=== PATIENT | male | born 1995 ===

== ENCOUNTER 2016-09-14 17:26 | Emergency (ER) | payer MEDICAID, OTHER ==
[2016-09-14 17:26] VITALS: BMI 20.3
[2016-09-14 17:38] VITALS: BP 136/75; RESP 16; O2SAT 100
--- NOTE | 2016-09-14 18:25 | ED PDOC ---
HPI: General Adult Time Seen by Provider: 09/14/16 17:40 Chief Complaint (Nursing): Flu-like Symptoms Chief Complaint (Provider): Congestion and body aches History Per: Patient History/Exam Limitations: no limitations Onset/Duration Of Symptoms: Hrs (since this morning) Have you had recent travel within the past 21 days to any of the following countries: [place], [place], [place] or [place]?: No Current Symptoms Are (Timing): Still Present Severity: Moderate Additional Complaint(s): Malinda Maier is a 21 year old male, with no pertinent past medical history, who presents to the ED on 09/14/16 for the evaluation of moderate nasal congestion and body aches that he has experienced since this morning. Patient admits to being homeless and is currently staying in a local halfway. No medications taken for symptom relief prior to arrival. He denies any recent travel. PMD: none Past Medical History Reviewed: Historical Data, Nursing Documentation, Vital Signs Vital Signs: Last Vital Signs Temp 101 F H 09/14/16 18:47 Pulse 103 H 09/14/16 17:34 Resp 16 09/14/16 17:34 BP 136/75 09/14/16 17:34 Pulse Ox 100 09/14/16 19:36 - Medical History PMH: No Chronic Diseases - Surgical History Surgical History: No Surg Hx - Family History Family History: States: No Known Family Hx - Living Arrangements Living Arrangements: Other (lives in halfway) - Social History Current smoker - smoking cessation education provided: Yes (only when drinking) Alcohol: Other (weekly) Drugs: Cocaine (weekly) - Immunization History Hx Tetanus Toxoid Vaccination: Yes (2 years ago) - Home Medications Home Medications: Ambulatory Orders Medication Instructions Recorded Naproxen [Naprosyn] 500 mg PO BID #20 tab 08/10/15 Acetaminophen [Acetaminophen 8 650 mg PO Q6 PRN #30 tablet.er 04/28/16 Hour] Cephalexin [Keflex] 500 mg PO QID 4 Days 04/28/16 Oseltamivir Phosphate [Tamiflu] 75 mg PO BID #10 capsule 09/14/16 - Allergies Allergies/Adverse Reactions: Allergies Allergy/AdvReac Type Severity Reaction Status Date / Time ibuprofen [From Motrin] Allergy RASH Verified 09/14/16 17:34 Review of Systems ROS Statement: Except As Marked, All Systems Reviewed And Found Negative Constitutional: Positive for: Other (body aches) ENT: Positive for: Nose Congestion Cardiovascular: Negative for: Chest Pain Respiratory: Positive for: Cough (slight dry cough). Negative for: Shortness of Breath, Hemoptysis, SOB with Exertion, Sputum, Wheezing Gastrointestinal: Negative for: Nausea, Vomiting, Abdominal Pain Genitourinary Male: Negative for: Dysuria Neurological: Positive for: Headache (mild). Negative for: Dizziness Physical Exam - Reviewed Nursing Documentation Reviewed: Yes Vital Signs Reviewed: Yes - Physical Exam Appears: Positive for: Non-toxic, No Acute Distress Head Exam: Positive for: ATRAUMATIC, NORMOCEPHALIC Skin: Positive for: Normal Color, Dry. Negative for: Rash Eye Exam: Positive for: Normal appearance, PERRL ENT: Positive for: Normal ENT Inspection, TM Is/Are (normal b/l). Negative for : Pharyngeal Erythema, Tonsillar Exudate, Tonsillar Swelling Neck: Positive for: Painless ROM Cardiovascular/Chest: Positive for: Regular Rate, Rhythm. Negative for: Murmur Respiratory: Positive for: Normal Breath Sounds. Negative for: Rales, Rhonchi, Wheezing, Respiratory Distress Neurologic/Psych: Positive for: Alert, Oriented - ECG O2 Sat by Pulse Oximetry: 100 (RA) Pulse Ox Interpretation: Normal - Other Rad CXR X-Ray: Interpreted by Me, Viewed By Me X-Ray Interpretation: no acute finding Medical Decision Making Medical Decision Makin:40 Initial Impression: Flu like symptoms Initial Plan: * CXR * Influenza A B * Rapid Strep * Throat Culture * Motrin 600mg PO * Tylenol 650mg PO * Reevaluation CXR shows no acute disease, as read by JAZMINE. 19:33 Flu and strep are negative, given clinical presentation, will treat clinically for influenza. Repeat temp: 99 Upon provider reevaluation patient is medically stable and requires no further treatment in the ED at this time. Patient will be discharged home with Rx for Tamiflu as well as instructions to take Tylenol/Motrin as needed for relief of both pain/fever. Counseling was provided and all questions were answered regarding diagnosis and need for follow up with a PMD or clinic. There is agreement to discharge plan. Return if symptoms persist or worsen. Scribe Attestation: Documented by Amie Laguna, acting as a scribe for Jessica Lui PA-C. Provider Scribe Attestation: All medical record entries made by the Scribe were at my direction and personally dictated by me. I have reviewed the chart and agree that the record accurately reflects my personal performance of the history, physical exam, medical decision making, and the department course for this patient. I have also personally directed, reviewed, and agree with the discharge instructions and disposition. Disposition - Clinical Impression Clinical Impression: Influenza-like symptoms - Patient ED Disposition Is Patient to be Admitted: No Counseled Patient/Family Regarding: Studies Performed, Diagnosis, Need For Followup, Rx Given - Disposition Referrals: [facility] [Outside] Disposition: Routine/Home Disposition Time: 19:33 Condition: STABLE Additional Instructions: Take rx meds as directed. Continue with over the counter advil and tylenol for fever. Rest and drink plenty of fluids. Follow up with clinic in 2-3 days. Prescriptions: Oseltamivir Phosphate [Tamiflu] 75 mg PO BID #10 capsule Instructions: Upper Respiratory Infection (ED)
[2016-09-14 19:48] VITALS: TEMP 99
[2016-09-14 19:50] VITALS: PULSE 88
--- NOTE | 2016-09-15 09:13 | RAD ---
HISTORY: cough COMPARISON: No prior. TECHNIQUE: Chest PA and lateral FINDINGS: LUNGS: No active pulmonary disease. PLEURA: No significant pleural effusion identified. No pneumothorax apparent. CARDIOVASCULAR: Normal. OSSEOUS STRUCTURES: Mild scoliosis mid thoracic spine convex right. VISUALIZED UPPER ABDOMEN: Normal. OTHER FINDINGS: None. IMPRESSION: No active disease.
== END 2016-09-14 19:52 | disposition home or self-care (01) ==
LOC: H.ER 17:26
DX: J06.9 Acute upper respiratory infection, unspecified (principal); R05 Cough; F17.200 Nicotine dependence, unspecified, uncomplicated; R50.9 Fever, unspecified

== ENCOUNTER 2018-01-22 09:56 | Emergency (ER) | payer MEDICAID, OTHER ==
[2018-01-22 09:56] VITALS: BMI 20.3
[2018-01-22 10:37] VITALS: O2SAT 98
[2018-01-22 10:40] VITALS: BP 135/73
--- NOTE | 2018-01-22 11:12 | RAD ---
PROCEDURE: Right Hand Radiographs. HISTORY: splinter/FB R hypothenar area COMPARISON: None. FINDINGS: BONES: No acute fracture. JOINTS: Unremarkable. SOFT TISSUES: Normal. OTHER FINDINGS: None. IMPRESSION: No radiopaque foreign body.
--- NOTE | 2018-01-22 11:19 | ED PDOC ---
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 Patient reports associated left trapezius shoulder pain with movement. He stated he tried to move splinter by himself. Patient denies any acute injury, weakness, numbness or headache. PMD: non provided Past Medical History Reviewed: Historical Data, Nursing Documentation, Vital Signs Vital Signs: Last Vital Signs Temp 98.2 F 01/22/18 10:39 Pulse 84 01/22/18 10:39 Resp 20 01/22/18 10:39 BP 135/73 01/22/18 10:39 Pulse Ox 98 01/22/18 10:39 - Medical History PMH: No Chronic Diseases Denies: Chronic Kidney Disease - Surgical History Surgical History: No Surg Hx - Family History Family History: States: Unknown Family Hx - Social History Current smoker - smoking cessation education provided: Yes Alcohol: Social Drugs: Cannabis - Immunization History Hx Tetanus Toxoid Vaccination: Yes (2 years ago) - Home Medications Home Medications: Ambulatory Orders Medication Instructions Recorded Naproxen [Naprosyn] 500 mg PO BID #20 tab 08/10/15 Acetaminophen [Acetaminophen 8 650 mg PO Q6 PRN #30 tablet.er 04/28/16 Hour] Cephalexin [Keflex] 500 mg PO QID 4 Days capsule 04/28/16 Oseltamivir Phosphate [Tamiflu] 75 mg PO BID #10 capsule 09/14/16 Cyclobenzaprine [Cyclobenzaprine 10 mg PO Q8 PRN #9 tab 01/22/18 HCl] - Allergies Allergies/Adverse Reactions: Allergies Allergy/AdvReac Type Severity Reaction Status Date / Time ibuprofen [From Motrin] Allergy RASH Verified 01/22/18 10:35 Review of Systems ROS Statement: Except As Marked, All Systems Reviewed And Found Negative Musculoskeletal: Positive for: Neck Pain (Left), Shoulder Pain (Left trapezius) , Hand Pain (Right) Neurological: Negative for: Weakness, Numbness Physical Exam - Reviewed Nursing Documentation Reviewed: Yes Vital Signs Reviewed: Yes - Physical Exam Appears: Positive for: Non-toxic, No Acute Distress Head Exam: Positive for: ATRAUMATIC, NORMOCEPHALIC Neck: Positive for: Normal, Supple Respiratory: Positive for: Normal Breath Sounds. Negative for: Respiratory Distress Extremity: Positive for: Normal ROM, Tenderness (Along trapezius muscle. No tenderness to neck or shoulder), Other (Small warm body imbedded in skin in 2 distinct areas of hypothenar eminence of right hand. No erythema.). Negative for: Swelling (of right hand) Neurologic/Psych: Positive for: Alert, Oriented. Negative for: Motor/Sensory Deficits - ECG O2 Sat by Pulse Oximetry: 98 (RA) Pulse Ox Interpretation: Normal Medical Decision Making Medical Decision Making: Time: 1040 Initial Plan: --Tylenol 325 mg PO --Right Hand X-Ray 3 Views 111 Right Hand X-Ray FINDINGS: BONES: No acute fracture. JOINTS: Unremarkable. SOFT TISSUES: Normal. OTHER FINDINGS: None. IMPRESSION: No radiopaque foreign body. Procedure: Two punctual foreign body removal and cleans with chlorhexidine. 1115 --X-ray reviewed and no foreign body noted. --Patient reports improvement of symptoms after procedure. 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 Scribe Attestation: Documented by Pina Bolaños, acting as a scribe for Urbano Becerril III, MD. Provider Scribe Attestation: All medical record entries made by the Scribe were at my direction and personally dictated by me. I have reviewed the chart and agree that the record accurately reflects my personal performance of the history, physical exam, medical decision making, and the department course for this patient. I have also personally directed, reviewed, and agree with the discharge instructions and disposition. Procedures - Time-Out Type of Procedure: Splinter removal Site of Procedure: Right hand Disposition - Clinical Impression Clinical Impression: Splinter of hand, Trapezius strain - Patient ED Disposition Is Patient to be Admitted: No Counseled Patient/Family Regarding: Studies Performed, Diagnosis, Need For Followup, Rx Given - Disposition Referrals: John Espinal MD [Family Provider] - Disposition: Routine/Home Disposition Time: 11:10 Condition: STABLE Additional Instructions: Keep hand clean and dry, use bacitracin 2x daily to splinter area. See hand surgeon for followup if symptoms persist. It's possible there is retained splinter in your skin which can cause infection or complications. DO NOT DRIVE OR OPERATE MACHINERY OR USE TOOLS WHILE TAKING MUSCLE RELAXANTS THEY CAN CAUSE DROWSINESS. Prescriptions: Cyclobenzaprine [Cyclobenzaprine HCl] 10 mg PO Q8 PRN #9 tab PRN Reason: Muscle Spasm Instructions: Muscle Strain, Foreign Body in Skin (DC) Forms: [employer] (Spanish)
[2018-01-22 11:32] VITALS: PULSE 76; RESP 18; TEMP 98.3
== END 2018-01-22 11:38 | disposition home or self-care (01) ==
LOC: H.ER 09:56
DX: S60.551A Superficial foreign body of right hand, initial encounter (principal); S46.812A Strain of other muscles, fascia and tendons at shoulder and upper arm level, left arm, initial encounter; Y99.0 Civilian activity done for income or pay; Z88.6 Allergy status to analgesic agent